=== PATIENT | male | born 1980 | race Caucasian/White ===

== ENCOUNTER 2025-04-15 20:48 | Emergency (ER) | payer BC ==
[2025-04-15 21:07] LABS: BASOPHILS ABSOLUTE AUTO 0.04 K/uL (0.00-0.10); BASOPHILS PERCENT AUTO 0.5 % (0.1-1.3); EOSINOPHILS ABSOLUTE AUTO 0.20 K/uL (0.00-0.40); EOSINOPHILS PERCENT AUTO 2.3 % (0.0-5.4); IMMATURE GRAN ABSOLUTE AUTO 0.03 K/uL (0.00-0.23); IMMATURE GRAN PERCENT AUTO 0.3 % (0.0-0.7); LYMPHOCYTES ABSOLUTE AUTO 3.00 K/uL (0.8-3.3); LYMPHOCYTES PERCENT AUTO 34.5 % (11.4-47.7); MONOCYTES ABSOLUTE AUTO 0.79 K/uL (0.20-0.90); MONOCYTES PERCENT AUTO 9.1 % (3.3-12.6); NEUTROPHILS ABSOLUTE AUTO 4.64 K/uL (1.0-7.6); NEUTROPHILS PERCENT AUTO 53.3 % (40.0-78.1); PLATELET COUNT,PLT 219 K/uL (130-375); RED BLOOD CELL COUNT 4.94 M/uL (4.14-5.76); WHITE BLOOD CELL COUNT,WBC 8.7 K/uL (3.2-11.0)
[2025-04-15 21:33] LABS: A/G RATIO 1.2 (1.2-2.2); ALANINE AMINOTRANSFERASE,ALT 38 U/L (12-78); ASPARTATE AMNIOTRANSFERASE,AST 38 U/L (15-37); BILIRUBIN TOTAL 0.7 mg/dL (0.2-1.0); BLOOD UREA NITROGEN,BUN 19 mg/dL (7-18); CARBON DIOXIDE,CO2 25 mmol/L (21-32); CHLORIDE,CL 102 mmol/L (100-108); CREATININE 1.0 mg/dL (0.8-1.3); EST CRCL DRUG DOSING (CG) 98.31 mL/min; ESTIMATED GFR 94 mL/min (>60); GLUCOSE RANDOM 149 mg/dL (74-106); POTASSIUM,K 3.7 mmol/L (3.6-5.2); PROTEIN TOTAL,TP 7.1 g/dL (6.4-8.2); SODIUM,NA 136 mmol/L (140-148)
[2025-04-15 21:37] LABS: TROPONIN I HIGH SENSITIVITY 9164.1 pg/mL (<=60.3)
== END 2025-04-16 01:02 | disposition home or self-care (01) ==
LOC: JP.ED 20:48
DX: R07.89 Other chest pain (principal); Z79.82 Long term (current) use of aspirin; Z79.899 Other long term (current) drug therapy; Z87.891 Personal history of nicotine dependence
CPT/HCPCS: 36415; 71045; 71045-26; 80053; 84484; 85025; 86140; 93005; 99285